=== PATIENT | male | born 1965 | race Caucasian/White ===

== ENCOUNTER 2022-05-09 17:30 | Emergency (ER) | payer BC ==
[~2022-05-09] VITALS: Ht 167.6 cm; Wt 65.0 kg
[2022-05-09 18:02] VITALS: BP 195/118
[2022-05-09 19:19] LABS: URINE AMPHETAMINE SCREEN NEGATIVE (Neg); URINE BARBITUATE SCREEN NEGATIVE (Neg); URINE BENZODIAZEPINES SCREEN NEGATIVE (Neg); URINE CANNABINOID SCREEN POSITIVE (Neg); URINE COCAINE SCREEN NEGATIVE (Neg); URINE METHADONE SCREEN NEGATIVE (Neg); URINE OPIATE SCREEN NEGATIVE (Neg); URINE PHENCYCLIDINE SCREEN NEGATIVE (Neg)
[2022-05-09] MEDS ORDERED: ondansetron/PF 4mg/2ml inj IV ONE (20:05)
[2022-05-09] MEDS ORDERED: morphine 4 MG/ML inj SYRINge IV ONE (20:05)
== END 2022-05-09 19:37 | disposition home or self-care (01) ==
LOC: ER 17:32
DX: Z00.8 Encounter for other general examination (principal); Z79.899 Other long term (current) drug therapy
CPT/HCPCS: 80305; 99283